=== PATIENT | male | born 1975 | race Caucasian/White ===

== ENCOUNTER → 2020-07-29 | Outpatient (CLI) | payer BC | LOC: LAB 08:57 | PROVIDERS: ATTEND Family Medicine | DX: R50.9 Fever, unspecified (principal); B97.29 Other coronavirus as the cause of diseases classified elsewhere; Z20.828 Contact with and (suspected) exposure to other viral communicable diseases | CPT/HCPCS: U0003 ==

== ENCOUNTER 2021-10-31 05:27 | Emergency (ER) | payer BC ==
[~2021-10-31] VITALS: Ht 182.9 cm; Wt 118.2 kg
--- NOTE | 2021-10-31 05:31 | PHYS DOC ---
Past History Past Medical History: Bronchitis (QUINN PARIS MD) General Adult EDM: Chief Complaint: MULTIPLE COMPLAINTS HPI: HPI: ".. I am sick.. this started last night... Fever... Chills... Nausea ... I hurt all over.. " Patient is a 46 year old male who presents with fever and multiple complaints. Patient states illness started acutely last night. Had fever and chills with associated cough. Patient complaining of chest pain, joint pain, myalgia, malaise, and shortness of breath. Patient does smoke. No recent travel. No sick ill contacts. Patient did not get flu vaccination. Patient did not get COVID vaccination. Patient normally follows with Dr. Glover. Patient does smoke about 10 cigarettes/day. (QUINN PARIS MD) Review of Systems: Review of Systems: Constitutional: Complains of fever or chills Eyes: Denies change in visual acuity HENT: Denies nasal congestion or sore throat Respiratory: Complains of cough and shortness of breath Cardiovascular: Denies chest pain or edema GI: Complains of abdominal pain, nausea, vomiting,. Bloody stools or diarrhea : Denies dysuria Musculoskeletal: Complains of generalized joint, and back pain Integument: Denies rash Neurologic: Denies headache, focal weakness or sensory changes Endocrine: Denies polyuria or polydipsia Lymphatic: Denies swollen glands Psychiatric: Denies depression or anxiety (QUINN PARIS MD) Family History: Family History: Noncontributory the presentation (QUINN PARIS MD) Current Medications: Current Meds: See nursing for home meds (QUINN PARIS MD) Allergies: Allergies: No known drug allergies (QUINN PARIS MD) Physical Exam: PE: Constitutional: in acute distress, non-toxic appearance. [] HENT: Normocephalic, atraumatic, bilateral external ears normal, oropharynx dry, no oral exudates, nose normal. [] Eyes: PERRLA, EOMI, conjunctiva normal, no discharge. [] Neck: Normal range of motion, no tenderness, supple, no stridor. [] Cardiovascular: Tachycardia heart rate regular rhythm, no murmur [] Lungs & Thorax: Bilateral breath sounds equal apex with scattered wheezing on auscultation [] Abdomen: Bowel sounds normal, soft, no tenderness, no masses, no pulsatile masses. [] Skin: Warm, dry, no erythema, no rash. Multiple tattoos Back: No tenderness, no CVA tenderness. [] Extremities: No tenderness, no cyanosis, no clubbing, ROM intact, no edema. [] No cording appreciated Neurologic: Alert and oriented X 3, normal motor function, normal sensory function, no focal deficits noted. [] Psychologic: Affect anxious, judgement normal, mood normal. [] (QUINN PARIS MD) Current Patient Data: Labs: Laboratory Tests Test 10/31/21 06:00 10/31/21 06:05 White Blood Count 15.9 x10^3/uL Red Blood Count 5.67 x10^6/uL Hemoglobin 17.2 g/dL Hematocrit 50.8 % Mean Corpuscular Volume 90 fL Mean Corpuscular Hemoglobin 30 pg Mean Corpuscular Hemoglobin Concent 34 g/dL Red Cell Distribution Width 13.7 % Platelet Count 266 x10^3/uL Neutrophils (%) (Auto) 88 % Lymphocytes (%) (Auto) 4 % Monocytes (%) (Auto) 6 % Eosinophils (%) (Auto) 1 % Basophils (%) (Auto) 0 % Neutrophils # (Auto) 14.0 x10^3uL Lymphocytes # (Auto) 0.7 x10^3/uL Monocytes # (Auto) 1.0 x10^3/uL Eosinophils # (Auto) 0.2 x10^3/uL Basophils # (Auto) 0.0 x10^3/uL Platelet Estimate Pending Prothrombin Time 10.1 SEC Prothromb Time International Ratio 1.0 Activated Partial Thromboplast Time 23 SEC D-Dimer (Sanjana) 0.75 mg/L Sodium Level 139 mmol/L Potassium Level 4.5 mmol/L Chloride Level 103 mmol/L Carbon Dioxide Level 26 mmol/L Anion Gap 10 Blood Urea Nitrogen 19 mg/dL Creatinine 1.1 mg/dL Estimated GFR (Cockcroft-Gault) 72.7 Glucose Level 144 mg/dL Calcium Level 9.2 mg/dL Magnesium Level 1.7 mg/dL Total Bilirubin 0.4 mg/dL Direct Bilirubin 0.1 mg/dL Aspartate Amino Transf (AST/SGOT) 34 U/L Alanine Aminotransferase (ALT/SGPT) 69 U/L Alkaline Phosphatase 118 U/L Creatine Kinase 744 U/L Troponin I High Sensitivity 9 ng/L SQ-Qah-L-Type Natriuretic Peptide 38 pg/mL Total Protein 6.8 g/dL Albumin 4.0 g/dL Lipase 83 U/L Influenza Type A (Rapid) Negative Influenza Type B (Rapid) Negative SARS-CoV-2 Antigen (Rapid) Negative Current Medications Medications (Trade) Dose Ordered Sig/Nevin Route PRN Reason Start Time Stop Time Status Last Admin Dose Admin Lactated Ringer's 1,000 ml @ 1,000 mls/hr Q1H IV 10/31/21 05:45 10/31/21 06:44 DC 10/31/21 06:02 Ondansetron HCl (Zofran) 8 mg 1X ONCE IVP 10/31/21 05:45 10/31/21 05:55 DC 10/31/21 06:02 Ketorolac Tromethamine (Toradol 30mg Vial) 30 mg 1X ONCE IVP 10/31/21 05:45 10/31/21 05:55 DC 10/31/21 06:02 Vital Signs: Vital Signs Date Time Temp Pulse Resp B/P (MAP) Pulse Ox O2 Delivery O2 Flow Rate FiO2 10/31/21 05:37 98 22 133/89 (104) 96 Room Air 10/31/21 06:09 98.5 Vital Signs Date Time Temp Pulse Resp B/P (MAP) Pulse Ox O2 Delivery O2 Flow Rate FiO2 10/31/21 06:09 98.5 101 22 133/89 (104) 95 Room Air (JARRETT NOBLES DO) EKG: EKG: [] (QUINN PARIS MD) EKG: EKG ordered and interpreted by myself at 0626 hrs. as sinus rhythm at 93 bpm, unremarkable intervals, no axis deviation, no obvious ischemic findings, no STEMI (JARRETT NOBLES DO) Radiology/Procedures: Radiology/Procedures: [] (QUINN PARIS MD) Impressions: XR CHEST 1V INDICATION: fever, cough, chills / Spl. Instructions: / History: . COMPARISON STUDY: None. FINDINGS: Lungs: Normal lung volume. Bilateral perihilar opacities. Indistinct central vasculature Pleura: No pleural effusion or pneumothorax. Heart and Mediastinum: The cardiomediastinal silhouette is normal. The great vessels of the thorax are normal. Bones and Soft Tissues: The bones and soft tissues are within normal limits. IMPRESSION: Bilateral perihilar opacities, likely edema or an effect. Electronically signed by: Camilo Benavides MD (10/31/2021 6:20 AM) [facility] (JARRETT NOBLES DO) Heart Score: C/O Chest Pain: Yes Risk Factors: Risk Factors: DM, Current or recent (<one month) smoker, HTN, HLP, family history of CAD, obesity. Risk Scores: Score 0 - 3: 2.5% MACE over next 6 weeks - Discharge Home Score 4 - 6: 20.3% MACE over next 6 weeks - Admit for Clinical Observation Score 7 - 10: 72.7% MACE over next 6 weeks - Early Invasive Strategies (QUINN PARIS MD) C/O Chest Pain: No (JARRETT NOBLES DO) Course & Med Decision Making: Course & Med Decision Making Pertinent Labs and Imaging studies reviewed. (See chart for details) Pt. endorsed to Dr. Nobles at shift change.Labs and Xrays pending. Impression: 1. Fever 2. Bronchitis [] (QUINN PARIS MD) Course & Med Decision Making I assumed care of patient after comprehensive signout from outgoing physician Hemodynamically stable. I repeated aspects of history and physical exam consistent with viral syndrome, patient deferred Covid testing in an unvaccinate d individual. Disclosed other remaining diagnostic tests that were all nonconcerning in nature Did disclose only abnormal finding was elevated D-dimer. Nonspecific in nature. Joint decision to defer further work-up as likelihood of pulmonary embolism lo w. Joint decision made to discharge home with continued supportive care practices advised and close PCP follow-up (JARRETT NOBLES DO) Dragon Disclaimer: Dragon Disclaimer: This electronic medical record was generated, in whole or in part, using a voice recognition dictation system. (QUINN PARIS MD) Departure Departure: Impression: Primary Impression: Viral syndrome Disposition: HOME / SELF CARE / HOMELESS Condition: STABLE Referrals: OSEAS GLOVER MD (PCP) Additional Instructions: You were seen for headache, fever, body aches, and possible infection with COVID-19. Your physical exam and comprehensive ER work-up was reassuring. Only abnormal finding disclosed was an elevated D-dimer which is nonspecific in nature, low likelihood of blood clot or other life-threatening abnormalities. You were negative for the flu, COVID-19 testing was offered but deferred. Alternate Tylenol and ibuprofen as needed for body aches and pain. You should make sure to drink plenty of fluids and get plenty of rest. You should return to the ED if you develop worsening cough, shortness of breath, chest pain, or any other new or concerning symptoms. Dragon Disclaimer This chart was dictated in whole or in part using Voice Recognition software in a busy, high-work load, and often noisy Emergency Department environment. It may contain unintended and wholly unrecognized errors or omissions. (QUINN PARIS MD) Dragon Disclaimer This chart was dictated in whole or in part using Voice Recognition software in a busy, high-work load, and often noisy Emergency Department environment. It may contain unintended and wholly unrecognized errors or omissions. (QUINN PARIS MD) QUINN PARIS MD Oct 31, 2021 05:30 JARRETT NOBLES DO Oct 31, 2021 06:49
[2021-10-31] MEDS ORDERED: ONDANSETRON PF 4 MG/2 ML VIAL. IVP ONE (05:45)
[2021-10-31] MEDS ORDERED: KETOROLAC 30 MG/ML VIAL. IVP ONE (05:45)
[2021-10-31] MEDS ORDERED: IV RINGERS SOLUTION,LACTATED 1,000 ML IV SCH (05:45)
--- NOTE | 2021-10-31 06:23 | RAD ---
XR CHEST 1V INDICATION: fever, cough, chills / Spl. Instructions: / History: . COMPARISON STUDY: None. FINDINGS: Lungs: Normal lung volume. Bilateral perihilar opacities. Indistinct central vasculature Pleura: No pleural effusion or pneumothorax. Heart and Mediastinum: The cardiomediastinal silhouette is normal. The great vessels of the thorax ar e normal. Bones and Soft Tissues: The bones and soft tissues are within normal limits. IMPRESSION: Bilateral perihilar opacities, likely edema or an effect. Electronically signed by: Camilo Benavides MD (10/31/2021 6:20 AM) [facility] CENTERGerhard
--- NOTE | 2021-10-31 06:32 | EKG ---
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
--- NOTE | 2021-10-31 06:33 | EKG ---
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
[2021-10-31 06:37] LABS: BASO % 0 % (0-3); EOS # 0.2 x10^3/uL (0.0-0.7); EOS % 1 % (0-3); HEMATOCRIT 50.8 % (39.0-53.0); HEMOGLOBIN 17.2 g/dL (13.0-17.5); LYMPH # 0.7 x10^3/uL (1.0-4.8); LYMPH % 4 % (24-48); MEAN CORPUSCULAR HEMOGLOBIN 30 pg (25-35); MEAN CORPUSCULAR HGB CONC 34 g/dL (31-37); MEAN CORPUSCULAR VOLUME 90 fL (79-100); MONO % 6 % (0-9); NEUT % 88 % (31-73); PLATELET COUNT 266 x10^3/uL (140-400); RED BLOOD COUNT 5.67 x10^6/uL (4.30-5.70); RED CELL DISTRIBUTION WIDTH 13.7 % (11.5-14.5); WHITE BLOOD COUNT 15.9 x10^3/uL (4.0-11.0)
[2021-10-31 06:38] LABS: INFLUENZA A PATIENT NEGATIVE (NEGATIVE); INFLUENZA B PATIENT NEGATIVE (NEGATIVE)
[2021-10-31 06:44] LABS: CALCIUM 9.2 mg/dL (8.5-10.1); CREATININE 1.1 mg/dL (0.7-1.3); DIRECT BILIRUBIN 0.1 mg/dL (0.0-0.2); GFR 72.7; MAGNESIUM 1.7 mg/dL (1.8-2.4); POTASSIUM 4.5 mmol/L (3.5-5.1); TOTAL BILIRUBIN 0.4 mg/dL (0.2-1.0); TOTAL PROTEIN 6.8 g/dL (6.4-8.2)
[2021-10-31 07:00] VITALS: BP 136/80
[2021-10-31] MEDS ORDERED: CALCIUM CARBONATE 500 MG TAB.CHEW PO PRN (07:15)
[2021-10-31 07:35] LABS: % BANDS 8 % (0-9); % SEGS 82 % (35-66)
[2021-10-31 07:36] LABS: % ATYL 5 % (0-0); % EOS 1 % (0-5); % MONOS 4 % (0-10); PLT ESTIMATE ADEQUATE (ADEQUATE)
== END 2021-10-31 07:17 | disposition home or self-care (01) ==
LOC: ER 05:27
DX: B34.9 Viral infection, unspecified (principal); J40 Bronchitis, not specified as acute or chronic; Z20.822 Contact with and (suspected) exposure to COVID-19
CPT/HCPCS: 36415; 71045; 80048; 80076; 82550; 83690; 83735; 83880; 84484; 85007; 85025; 85379; 85610; 85730; 87428; 93005; 96361; 96374; 96375; 99285; J1885; J2405; J7120